=== PATIENT | female | born 1955 | race Caucasian/White ===

== ENCOUNTER 2018-10-26 15:27 | Emergency (ER) | payer OTHER ==
[~2018-10-26] VITALS: Ht 149.9 cm; Wt 62.0 kg
[~2018-10-26 15:27] MED LIST: HYDR-3601 PO; LATA2.5D2 BOTH EYES
[2018-10-26 15:38] VITALS: BP 147/65; PULSE 68; RESP 18; Ht 149.9 cm; Wt 62.0 kg
== END 2018-10-26 16:54 | disposition home or self-care (01) ==
LOC: FTE 15:27
DX: R20.0 Anesthesia of skin (principal); T50.2X5A Adverse effect of carbonic-anhydrase inhibitors, benzothiadiazides and other diuretics, initial encounter; Z85.3 Personal history of malignant neoplasm of breast
CPT/HCPCS: 99282